=== PATIENT | male | born 1990 | race Caucasian/White ===

== ENCOUNTER 2021-09-02 23:19 | Emergency (ER) | payer BC ==
[2021-09-02 23:42] LABS: HEMOGLOBIN 14.7 gm/dl (14.0-17.5); RED BLOOD COUNT 4.57 M/UL (4.20-5.50); WHITE BLOOD COUNT 9.8 K/UL (4.5-11.0)
[2021-09-03 00:01] LABS: BUN/CREATININE RATIO 15 (0-10)
[2021-09-03] MEDS ORDERED: DICLOFENAC SODI75 MG PO (10:19)
[2021-09-03] MEDS ORDERED: VITAMIN D21250 MCG PO (10:19)
[2021-09-03] MEDS ORDERED: SYNTHROID50 MCG PO (10:19)
[2021-09-03] MEDS ORDERED: IRON325 M1 PO (10:20)
== END 2021-09-03 12:20 | disposition short-term general hospital (02) ==
LOC: ER1 23:19
PROVIDERS: Family Medicine
DX: T14.91XA Suicide attempt, initial encounter (principal); Z20.822 Contact with and (suspected) exposure to COVID-19
CPT/HCPCS: 70450; 70491; 80053; 80307; 81001; 85025; 93005; 99285; G0480; Q9967; U0002